=== PATIENT | female | born 1985 | race Caucasian/White ===

== ENCOUNTER 2021-01-10 08:13 | Inpatient (IN) | payer OTHER ==
[~2021-01-10] VITALS: Ht 157.5 cm; Wt 81.6 kg
[2021-01-10] MEDS ORDERED: NASAL MIST126 ML (08:49)
[2021-01-10] MEDS ORDERED: PRENATAL TABLE1 EAC1 PO (08:49)
== END 2021-01-12 16:04 | disposition home or self-care (01) | DRG 805 ==
LOC: OBS/DEL 08:13 → LDR 13:54 → OB/GYN 13:54 → OBS/DEL 13:54 → OB/GYN 17:05
PROVIDERS: ADMIT Specialist; ATTEND Specialist
PROC: 10E0XZZ Delivery of Products of Conception, External Approach (ICD-10-PCS; principal; 2021-01-10)
PROC: 4A1HXFZ Monitoring of Products of Conception, Cardiac Rhythm, External Approach (ICD-10-PCS; 2021-01-10)
DX: O36.5930 Maternal care for other known or suspected poor fetal growth, third trimester, not applicable or unspecified (principal); O41.1230 Chorioamnionitis, third trimester, not applicable or unspecified; O41.03X0 Oligohydramnios, third trimester, not applicable or unspecified; Z37.0 Single live birth; Z3A.38 38 weeks gestation of pregnancy; Z20.822 Contact with and (suspected) exposure to COVID-19

== ENCOUNTER 2021-04-13 11:22 | Outpatient (CLI) | payer OTHER ==
[~2021-04-13 11:22] MED LIST: NASAL MIST126 ML; PRENATAL TABLE1 EAC1 PO
== END 2021-04-13 12:00 | disposition home or self-care (01) ==
LOC: RAD 11:22
PROVIDERS: ATTEND Orthopaedic Surgery
DX: M25.531 Pain in right wrist (principal)